=== PATIENT | male | born 1960 | race Caucasian/White ===

== ENCOUNTER 2022-01-05 12:03 | Day surgery (SDC) | payer MEDICARE ==
[~2022-01-05] VITALS: Ht 185.4 cm; Wt 125.5 kg
[~2022-01-05 12:03] MED LIST: ASPI81CH PO; Actigall300 MG PO; CENTRUM SILVER1 EAC1 PO; CENTURY ADULTS1 EACH PO; CLOP75 PO; HYDCHL25 PO; LOSHYD100 PO; METO50 PO; NAPROXEN SODIUM PO; NATURAL LUTEIN20 MG PO; NICOTINE1 EAC1 TOP; NITR.4SL SL; PRAV20 PO; RANI150 PO; SYNTHROID0.2 MG PO; Synthroid25 MCG PO; TRAM50 PO; URSO300 PO; VITAMIN D32000 UNI1 PO; Vitamin D PO; Vitamin D2000 UNIT
[2022-01-05] MEDS ORDERED: CARV25 (12:35)
== END 2022-01-05 14:33 | disposition home or self-care (01) ==
LOC: ORSCSDS 12:03
DX: Z12.11 Encounter for screening for malignant neoplasm of colon (principal); Z86.010 Personal history of colon polyps; D12.2 Benign neoplasm of ascending colon; D12.8 Benign neoplasm of rectum; I10 Essential (primary) hypertension; E78.5 Hyperlipidemia, unspecified; I25.10 Atherosclerotic heart disease of native coronary artery without angina pectoris; K74.5 Biliary cirrhosis, unspecified; L93.0 Discoid lupus erythematosus; F32.A Depression, unspecified; K21.9 Gastro-esophageal reflux disease without esophagitis; E03.9 Hypothyroidism, unspecified; I21.4 Non-ST elevation (NSTEMI) myocardial infarction; E11.9 Type 2 diabetes mellitus without complications; E66.9 Obesity, unspecified; Z68.36 Body mass index [BMI] 36.0-36.9, adult; Z79.82 Long term (current) use of aspirin; Z79.4 Long term (current) use of insulin; Z79.899 Other long term (current) drug therapy
CPT/HCPCS: 82947; 88305; J2704; J7120